=== PATIENT | female | born 1965 | race Caucasian/White ===

== ENCOUNTER 2025-02-20 11:45 | Outpatient (CLI) | payer OTHER, SELFPAY | END 2025-02-20 11:46 | disposition home or self-care (01) | PROVIDERS: Visit Provider Emergency Medicine | DX: R41.89 Other symptoms and signs involving cognitive functions and awareness (principal); Z79.899 Other long term (current) drug therapy; Z13.6 Encounter for screening for cardiovascular disorders; Z13.29 Encounter for screening for other suspected endocrine disorder | CPT/HCPCS: 80053; 80061; 82607; 84443 ==

== ENCOUNTER 2025-06-27 08:19 | Outpatient (CLI) | payer MEDICARE, SELFPAY ==
--- NOTE | 2025-06-27 08:45 | MM_ITS ---
Patient: SANDRINE COLON Facility:?[facility] Patient ID:?[id number] Site Patient ID:?[id number]. Site :?[id number] Study:?XRay-Breast 3D Trung SCREENING-06/27/2025 8:59:07 AM Ordering Physician:?Suzy Guevara Final Report: INDICATION: BILATERAL SCREENING MAMMOGRAM, ASYMPTOMATIC 59 Y/O FEMALE COMPARISON: REESTABLISH BASELINE TECHNIQUE: Digital mammogram in CC and MLO projections including computer-aided detection (CAD) and tomosynthesis. BREAST COMPOSITION: There are scattered areas of fibroglandular density. FINDINGS: No suspicious findings. ASSESSMENT: BI-RADS 2 Benign RECOMMENDATION: Annual screening mammogram. A lay language report of this examination will be provided to the patient. Dictated by: Fabrice Wise MD @ 06/27/2025 10:25:09 Signed by:?Fabrice Wise MD @06/27/2025 10:25:09 AM (Electronic Signature)
== END 2025-06-27 08:20 | disposition home or self-care (01) ==
PROVIDERS: Visit Provider Emergency Medicine
DX: Z12.31 Encounter for screening mammogram for malignant neoplasm of breast (principal)
CPT/HCPCS: 77063; 77067